=== PATIENT | male | born 1985 | race Caucasian/White ===

== ENCOUNTER 2020-11-09 20:21 | Emergency (ER) | payer OTHER ==
--- NOTE | 2020-11-09 21:52 | EDM.PDOC ---
ED HPI GENERAL MEDICAL PROBLEM - General Chief Complaint: Lower Extremity Injury/Pain Stated Complaint: LEFT HIP HIT BY WOOD Time Seen by Provider: 11/09/20 21:00 Source of Information: Reports: Patient History Limitations: Reports: No Limitations - History of Present Illness INITIAL COMMENTS - FREE TEXT/NARRATIVE: 35-year-old man struck very hard on the lateral left hip by a large piece of wood while at work earlier today. He now has pressure and pain in the left lateral pelvis and hip, and pain with walking. No abdominal pain, no significant bruising or abrasion. Onset: Sudden Duration: Hour(s): (Within the last 2 hours) Location: Reports: Other (Left hip) Worsens with: Reports: Other (Walking), Movement Left Hip Pain Score (Numeric/FACES): 7 - Related Data Allergies Allergy/AdvReac Type Severity Reaction Status Date / Time cephalexin [From Keflex] Allergy Cannot Verified 11/09/20 21:04 Remember Home Meds: Home Meds NK [No Known Home Meds] 11/09/20 [History] Past Medical History HEENT History: Reports: Hard of Hearing, Other (See Below) Other HEENT History: deaf r ear Gastrointestinal History: Reports: GERD Musculoskeletal History: Reports: Fracture Other Musculoskeletal History: hands fingers nose Neurological History: Reports: Concussion Psychiatric History: Reports: Bipolar - Past Surgical History HEENT Surgical History: Reports: Adenoidectomy, Tonsillectomy Social & Family History - Tobacco Use Tobacco Use Status *Q: Current Every Day Tobacco User Years of Tobacco use: 30 Packs/Tins Daily: 1 Used Tobacco, but Quit: No Second Hand Smoke Exposure: Yes - Caffeine Use Caffeine Use: Reports: Coffee, Energy Drinks - Alcohol Use Days Per Week of Alcohol Use: 2 Number of Drinks Per Day: 3 Total Drinks Per Week: 6 - Recreational Drug Use Recreational Drug Use: No Review of Systems - Review of Systems Review Of Systems: See Below Constitutional: Denies: Fever Respiratory: Reports: No Symptoms Cardiovascular: Reports: No Symptoms GI/Abdominal: Reports: No Symptoms Skin: Reports: No Symptoms. Denies: Bruising, Erythema Neurological: Reports: No Symptoms. Denies: Paresthesia Psychiatric: Reports: No Symptoms ED EXAM, GENERAL - Physical Exam Exam: See Below Exam Limited By: No Limitations General Appearance: Alert, No Apparent Distress (Looks uncomfortable but not distressed) Head: Atraumatic Respiratory/Chest: No Respiratory Distress, Lungs Clear Extremities: Other (Patient has significant tenderness to palpation just in front of the greater trochanter of the left hip where there is a moderate somewhat firm hematoma palpable. Passive range of motion is sore) Neurological: Alert, Oriented, No Motor/Sensory Deficits Course - Vital Signs Last Recorded V/S: Last Vital Signs Temp 98.0 F 11/09/20 21:13 Pulse 64 11/09/20 21:13 Resp 16 11/09/20 21:13 BP 132/88 11/09/20 21:13 Pulse Ox 98 11/09/20 21:13 - Orders/Labs/Meds Orders: Active Orders 24 hr Category Date Time Status Hip Min 2V or 3V w Pelvis Lt [CR] Stat Exams 11/09/20 21:22 Taken - Re-Assessments/Exams Free Text/Narrative Re-Assessment/Exam: 11/09/20 21:49 X-ray of the pelvis and left hip were obtained which shows no fracture. Patient was given two 6 inch Sherman wraps and should ice this hematoma down aggressively for 24 to 48 hours. Increase activity as tolerated and recheck in 4 to 5 days if not improving satisfactorily. He was also given 10 hydrocodone for some extra pain control. Departure - Departure Time of Disposition: 22:05 Disposition: Home, Self-Care 01 Clinical Impression: Contusion of left hip Qualifiers: Encounter type: initial encounter Qualified Code(s): S70.02XA - Contusion of left hip, initial encounter Hematoma of hip Qualifiers: Encounter type: initial encounter Laterality: left Qualified Code(s): S70.02XA - Contusion of left hip, initial encounter - Discharge Information Instructions: Contusion, [id number] Referrals: PCP,None [Primary Care Provider] - Forms: ED Department Discharge Care Plan Goals: Sherman wrapping and icing the sore area will be helpful for the next 48 hours. A regular dose of ibuprofen or naproxen will also help, add stronger pain medications if needed. Increase activity as tolerated, and consider rechecking in 5 to 6 days if not improving satisfactorily. Sepsis Event Note (ED) - Evaluation Sepsis Screening Result: No Definite Risk - Focused Exam Vital Signs: Vital Signs Temp Pulse Resp BP Pulse Ox 11/09/20 21:13 98.0 F 64 16 132/88 98 11/09/20 20:48 98.0 F 64 16 132/88 98 - My Orders Last 24 Hours: My Active Orders 11/09/20 21:22 Hip Min 2V or 3V w Pelvis Lt [CR] Stat - Assessment/Plan Last 24 Hours: My Active Orders 11/09/20 21:22 Hip Min 2V or 3V w Pelvis Lt [CR] Stat
--- NOTE | 2020-11-10 09:00 | CR ---
Hip Min 2V or 3V w Pelvis Lt CLINICAL HISTORY: Trauma FINDINGS: No fracture or osseous lesion is seen. Articular surfaces are smooth. Joint spaces are maintained. IMPRESSION: Negative
== END 2020-11-09 22:05 | disposition home or self-care (01) ==
LOC: JP.ED 20:21
DX: S70.02XA Contusion of left hip, initial encounter (principal); Z88.1 Allergy status to other antibiotic agents; Z72.0 Tobacco use; W22.8XXA Striking against or struck by other objects, initial encounter; Y99.0 Civilian activity done for income or pay
CPT/HCPCS: 73502-26-LT; 73502-LT; 99283-25